=== PATIENT | male | born 1955 | race Caucasian/White ===

== ENCOUNTER 2023-03-19 19:13 | Emergency (ER) | payer OTHER, SELFPAY ==
--- NOTE | ~2023-03-19 | CT_ITS ---
EXAMINATION: CT ABDOMEN AND PELVIS WITHOUT CONTRAST CLINICAL INFORMATION: r/o R ureterolithiasis. COMPARISON: No pertinent prior studies are available for comparison. TECHNIQUE: Multidetector volumetric imaging was performed from the superior aspect of the liver through the pubic symphysis without contrast per renal stone protocol. Sagittal and coronal reformatted images were obtained on the technologist workstation. This CT examination was performed using dose optimization techniques as appropriate, variously including the following: *Automated exposure control *Adjustment of mA and/or kV according to patient size (this includes techniques or standardized protocols for targeted exams where dose is matched to indication/reason for exam; i.e. extremities or head) *Use of iterative reconstruction technique DLP: 750 mGy-cm. FINDINGS: LUNG BASES: Minimal bibasilar dependent atelectasis LIVER, GALLBLADDER, BILIARY TREE: The non-contrast liver is normal in size, shape, and attenuation. No focal hepatic lesion or biliary ductal dilatation is present. The gallbladder is unremarkable with no evidence of radiopaque gallstones, gallbladder wall thickening, or obvious pericholecystic inflammatory changes. PANCREAS: Unremarkable. SPLEEN: Unremarkable. ADRENAL GLANDS: Unremarkable. KIDNEYS AND URETERS: The kidneys are normal in size, shape, and attenuation. There is mild fullness to the right collecting system and proximal ureter extending up to a tiny 3 mm calcification in the proximal to mid right ureter at the level of L4. No intraluminal or calculi seen in the contralateral left kidney is unremarkable BLADDER: Unremarkable. GASTROINTESTINAL TRACT: A few scattered colonic diverticula are noted but no colonic wall thickening or pericolonic inflammatory changes. Normal-appearing appendix in the right lower quadrant. Visualized small bowel unremarkable ABDOMINAL WALL: No significant hernia is appreciated. LYMPHOVASCULAR STRUCTURES: Minimal vascular calcification within the aorta iliac system. No bulky adenopathy. PELVIC VISCERA: Unremarkable. OSSEUS STRUCTURES: Degenerative and chronic appearing changes to the spine CT/CT abdomen pelvis wo IV con IMPRESSION: Mild fullness to the right collecting system and proximal ureter extending up to a 3 mm calcification in the proximal to mid right ureter at the level of L4.
[2023-03-19 19:33] VITALS: BP 168/89; PULSE 70; RESP 22; TEMP 37; O2SAT 99; BMI 33.4
--- NOTE | 2023-03-19 19:33 | ED_ITS ---
HPI - Abdominal Pain General Chief Complaint: Abdominal Pain Stated Complaint: abd pain Time Seen by Provider: 03/19/23 19:49 Source: patient and family Mode of arrival: ambulatory Limitations: no limitations History of Present Illness HPI narrative: Patient comes to the emergency room complaining of right lower quadrant pain that approximately started 2-1/2 hours ago. Patient states he was very sudden, sharp, radiating from the right flank towards the testy. Patient states the actual scrotum/right testy do not hurt, no swelling, no penile discharge. Patient states he has never had this kind of pain before. Denies any injury. Related Data Previous Rx's Medication Instructions Recorded ketorolac 10 mg tablet 10 mg PO TID PRN pain #10 tabs 03/19/23 ondansetron HCl 4 mg tablet 4 mg PO Q6H PRN nausea and 03/19/23 vomiting #10 tabs oxycodone 5 mg tablet 5 mg PO BID PRN pain #4 tabs 03/19/23 prednisone 20 mg tablet 20 mg PO DAILY #3 tabs 03/19/23 tamsulosin 0.4 mg capsule 0.4 mg PO DAILY #10 caps 03/19/23 Allergies Allergy/AdvReac Type Severity Reaction Status Date / Time No Known Allergies Allergy Unverified 06/24/20 15:18 [No Known Allergies*] Review of Systems Review of Systems Constitutional : No Weight loss, No Fever, No Chills, No Night Sweats, No Fatigue, No Malaise ENT/Mouth : No Hearing loss, No Ear Pain, No Nasal Congestion, No Sinus Pain, No Hoarseness, No sore throat, No Rhinorrhea, No Swallowing Difficulty Eyes: No Eye Pain, No Swelling, No Redness, No Foreign Body, No Discharge, No Vision Changes Cardiovascular : No Chest Pain, No SOB, No Dyspnea on Exertion, No Orthopnea, No Edema, No Palpitations Respiratory : No Cough, No Sputum, No Wheezing, No Smoke Exposure, No Dyspnea Gastrointestinal : No Nausea, No Vomiting, No Diarrhea, No Constipation, complaining of right lower quadrant pain/flank pain radiating towards the back and down to the right testicle Genitourinary : Patient denies testicular pain, no scrotal swelling, No Dysuria, No Urinary Frequency, No Hematuria, No Urinary Incontinence, No Urgency, complaining of right-sided Flank Pain, No Urinary Flow Changes, No Hesitancy Musculoskeletal : No joint pain, No Myalgias, No Joint Swelling Skin : No Skin Lesions, No rash Neuro : No Weakness, No Numbness, No Paresthesias, No Loss of Consciousness, No Dizziness, No Headache Psych : No Anxiety/Panic, No Depression, No SI/HI/AH/VH, No Social Issues, Heme/Lymph: No Bruising, No Bleeding,No Lymphadenopathy Endocrine : No Polyuria, No Polydipsia, No Temperature Intolerance PMFSH Social History Social History Advance Directives: No Advance Directives Information Provided: No Physical Exam ED Vital Signs: Vital Signs - 24 hr 03/19/23 22:01 Temperature 98.1 F Pulse Rate 73 Respiratory Rate 18 Blood Pressure 134/79 Pulse Oximetry 98 Oxygen Delivery Method Room Air BMI result Body Mass Index 33.4 Const Other: Appearance: Alert. Oriented X3. Patient looks uncomfortable, unable to sit still Eyes: Pupils equal, round and reactive to light. ENT: Pharynx normal. Neck: Normal inspection. Neck supple. No lymph nodes noted. No crepitus CVS: Normal heart rate and rhythm. Pulses normal. Normal S1 and S2 Respiratory: No respiratory distress. Breath sounds normal. No Wheezing. No rales Abdomen: Soft and nontender. No rigidity. No distention. Complaining of mild right flank pain Skin: Skin warm and dry. Normal skin color. Normal skin turgor. Extremities: No lower extremity edema. No Lacerations. No Rash Neuro: Oriented X 3. No motor deficit. No sensory deficit. Moving all extremities. No slurred speech. CN 2 through 12 grossly intact Psych: calm, cooperative, normal affect Course Course Course Narrative: RME: 68yo M w/no sig PMHx c/o sudden onset right sided testicular pain radiating to R lower abdomen/back x1 hr. denies N/V, trauma, tesicular swelling, discharge Pacing around triage room, appears uncomfortable Labs, UA, CT/NG, Scrotal US ordered, +/-CT to r/o stone Full HPI, ROS and PE to be performed by primary ED provider. Medical Decision Making Medical Decision Making [facility] Narrative: -patient more comfortable, use received 2 mg of morphine on arrival. -from patient's H&P, this is likely ureterolithiasis, we will start with a CT scan, if needed we will reorder the ultrasound -patient still complaining of pain, given 30 mg of ketorolac IV -received an additional 4 mg of morphine and then 1 dose of oxycodone p.o.. Patient overall feeling much better. -I discussed the CT findings with the patient, my interpretation of CT scan: Ureterolithiasis present on the right side, patient is passing kidney stones. -urinalysis negative for UTI Lab Data MDM Lab Attestation statement: I reviewed the patient's lab results. 03/19/23 19:40 03/19/23 19:40 Labs: Lab Results 03/19/23 03/19/23 03/19/23 Range/Units 19:40 19:40 21:22 WBC 6.7 (4.8-10.8) X10*3/uL RBC 5.11 (4.60-5.80) X10*6/uL Hgb 15.1 (14.0-18.0) g/dl Hct 44.2 (42.0-52.0) % MCV 86.5 (80.0-98.0) fL MCH 29.5 (27.0-33.0) pg MCHC 34.2 (31.0-36.0) g/dl RDW 12.7 (11.0-16.0) % Plt Count 240 (160-400) X10*3/uL MPV 9.2 L (9.4-12.4) fL Immature Gran % (Auto) 0.1 (0.0-0.4) % Neut % (Auto) 49.4 (45-73) % Lymph % (Auto) 34.5 (20-40) % [place] % (Auto) 13.6 H (2-11) % Eos % (Auto) 1.8 (0-4) % Baso % (Auto) 0.6 (0-2) % Lymph # (Auto) 2.3 (1.2-4.9) X10*3/uL [place] # (Auto) 0.9 (0.1-1.2) X10*3/uL Eos # (Auto) 0.1 (0.0-0.4) X10*3/uL Baso # (Auto) 0.0 (0.0-0.2) X10*3/uL Abs Immat Gran (auto) 0.01 (0.00-0.03) X10*3/uL Absolute Neuts (auto) 3.3 (2.0-8.3) x10*3/uL Absolute Nucleated RBC 0.000 (0.0-0.012) X10*3/uL Nucleated RBC % (auto) 0.0 (0.0-0.2) /100WBC Sodium 139 (135-145) mmol/L Potassium 4.3 (3.3-5.1) mmol/L Chloride 104 (96-108) mmol/L Carbon Dioxide 22 (22-29) mmol/L Anion Gap 17 (12-20) BUN 20 H (9-16) mg/dL Creatinine 1.03 (0.5-1.4) mg/dL Estim Creat Clear Calc 84.6 Estimated GFR > 60 Random Glucose 225 H (60-115) mg/dL Calcium 10.0 (8.4-10.2) mg/dL Total Bilirubin 0.8 (0.0-1.0) mg/dL Direct Bilirubin 0.2 (0.0-0.5) mg/dL AST 31 (5-37) U/L ALT 30 (0-40) U/L Alkaline Phosphatase 69 (39-117) U/L Total Protein 7.2 (6.5-8.0) g/dL Albumin 4.4 (3.5-5.0) g/dL Lipase 37 (8-78) U/L Urine Color Yellow Urine Appearance Clear Urine pH 7.5 (5.0-9.0) Ur Specific [place] 1.010 (1.005-1.025) Urine Protein Negative (Neg-Trace) mg/dL Urine Glucose (UA) Negative (Negative) mg/dL Urine Ketones 15 (Negative) mg/dL Urine Blood Large (3+) H (Negative) Urine Nitrite Negative (Negative) Ur Leukocyte Esterase Negative (Negative) Urine RBC >20 H (0-2) /HPF Urine WBC 0-5 (0-5) /HPF Ur Squamous Epith Cells 0-2 (0-2) /HPF Urine Bacteria None Seen (None Seen) Hyaline Casts 0-2 (0-2) /LPF Chlam trachomat DNA PCR (Not Detect.) N.gonorrhoeae DNA (PCR) (Not Detect.) 03/19/23 Range/Units 21:22 WBC (4.8-10.8) X10*3/uL RBC (4.60-5.80) X10*6/uL Hgb (14.0-18.0) g/dl Hct (42.0-52.0) % MCV (80.0-98.0) fL MCH (27.0-33.0) pg MCHC (31.0-36.0) g/dl RDW (11.0-16.0) % Plt Count (160-400) X10*3/uL MPV (9.4-12.4) fL Immature Gran % (Auto) (0.0-0.4) % Neut % (Auto) (45-73) % Lymph % (Auto) (20-40) % [place] % (Auto) (2-11) % Eos % (Auto) (0-4) % Baso % (Auto) (0-2) % Lymph # (Auto) (1.2-4.9) X10*3/uL [place] # (Auto) (0.1-1.2) X10*3/uL Eos # (Auto) (0.0-0.4) X10*3/uL Baso # (Auto) (0.0-0.2) X10*3/uL Abs Immat Gran (auto) (0.00-0.03) X10*3/uL Absolute Neuts (auto) (2.0-8.3) x10*3/uL Absolute Nucleated RBC (0.0-0.012) X10*3/uL Nucleated RBC % (auto) (0.0-0.2) /100WBC Sodium (135-145) mmol/L Potassium (3.3-5.1) mmol/L Chloride (96-108) mmol/L Carbon Dioxide (22-29) mmol/L Anion Gap (12-20) BUN (9-16) mg/dL Creatinine (0.5-1.4) mg/dL Estim Creat Clear Calc Estimated GFR Random Glucose (60-115) mg/dL Calcium (8.4-10.2) mg/dL Total Bilirubin (0.0-1.0) mg/dL Direct Bilirubin (0.0-0.5) mg/dL AST (5-37) U/L ALT (0-40) U/L Alkaline Phosphatase (39-117) U/L Total Protein (6.5-8.0) g/dL Albumin (3.5-5.0) g/dL Lipase (8-78) U/L Urine Color Urine Appearance Urine pH (5.0-9.0) Ur Specific [employer] [place] (1.005-1.025) Urine Protein (Neg-Trace) mg/dL Urine Glucose (UA) (Negative) mg/dL Urine Ketones (Negative) mg/dL Urine Blood (Negative) Urine Nitrite (Negative) Ur Leukocyte Esterase (Negative) Urine RBC (0-2) /HPF Urine WBC (0-5) /HPF Ur Squamous Epith Cells (0-2) /HPF Urine Bacteria (None Seen) Hyaline Casts (0-2) /LPF Chlam trachomat DNA PCR NOT DETECTED (Not Detect.) N.gonorrhoeae DNA (PCR) NOT DETECTED (Not Detect.) Radiology Impression Discussion of test interpretation with radiology: I have reviewed the radiolo gist's reading. Radiologist Impression: INDINGS: LUNG BASES: Minimal bibasilar dependent atelectasis LIVER, GALLBLADDER, BILIARY TREE: The non-contrast liver is normal in size, shape, and attenuation. No focal hepatic lesion or biliary ductal dilatation is present.? The gallbladder is unremarkable with no evidence of radiopaque gallstones, gallbladder wall thickening, or obvious pericholecystic inflammatory changes. PANCREAS: Unremarkable. SPLEEN: Unremarkable. ADRENAL GLANDS: Unremarkable. KIDNEYS AND URETERS: The kidneys are normal in size, shape, and attenuation. There is mild fullness to the right collecting system and proximal ureter extending up to a tiny 3 mm calcification in the proximal to mid right ureter at the level of L4. No intraluminal or calculi seen in the contralateral left kidney is unremarkable BLADDER: Unremarkable. GASTROINTESTINAL TRACT: A few scattered colonic diverticula are noted but no colonic wall thickening or pericolonic inflammatory changes. Normal-appearing appendix in the right lower quadrant. Visualized small bowel unremarkable ABDOMINAL WALL: No significant hernia is appreciated. LYMPHOVASCULAR STRUCTURES: Minimal vascular calcification within the aorta iliac system. No bulky adenopathy. PELVIC VISCERA: Unremarkable. OSSEUS STRUCTURES: Degenerative and chronic appearing changes to the spine CT/CT abdomen pelvis wo IV con IMPRESSION: Mild fullness to the right collecting system and proximal ureter extending up to a 3 mm calcification in the proximal to mid right ureter at the level of L4. ? Medications Administered Discontinued Medications Generic Name Dose Route Start Last Admin Trade Name Freq PRN Reason Stop Dose Admin Sodium Chloride 1,000 mls @ 999 mls/hr 03/19/23 19:45 03/19/23 22:17 Ns IV 03/19/23 20:45 Infused .Q1H1M SUMEET Infusion Ketorolac Tromethamine 30 mg 03/19/23 20:02 03/19/23 20:09 Ketorolac Tromethamine 30 Mg/Ml Vial IVPUSH 03/19/23 20:03 30 mg ONCE ONE Administration Morphine Sulfate 2 mg 03/19/23 19:40 03/19/23 19:51 Morphine Sulfate 2 Mg/Ml Cartridge IVPUSH 03/19/23 19:41 2 mg ONCE ONE Administration Protocol Morphine Sulfate 4 mg 03/19/23 20:51 03/19/23 21:03 Morphine Sulfate 4 Mg/Ml Cartridge IVPUSH 03/19/23 20:52 4 mg ONCE ONE Administration Protocol Ondansetron HCl 4 mg 03/19/23 19:40 03/19/23 19:51 Ondansetron Hcl 4 Mg/2 Ml Vial IVPUSH 03/19/23 19:41 4 mg ONCE ONE Administration Oxycodone HCl 5 mg 03/19/23 21:17 03/19/23 21:44 Oxycodone Hcl Immed Release 5 Mg Tablet PO 03/19/23 21:18 5 mg ONCE ONE Administration Discharge Plan Discharge Clinical Impression: Ureterolithiasis Patient Disposition: Home, Self-Care Instructions: Kidney Stones (ED) Additional Instructions: Strain the urine, try to catch the stones and take them with you to your urology appointment. Please follow-up with your primary care physician tomorrow. If you have any worsening or new symptoms, please return to the emergency room or call 911 Prescriptions: New ketorolac 10 mg tablet 10 mg PO TID PRN (Reason: pain) Qty: 10 0RF Rx Instructions: Your take this medications with ibuprofen, NSAIDs. oxycodone 5 mg tablet 5 mg PO BID PRN (Reason: pain) Qty: 4 0RF Rx Instructions: Partial Fill upon patient request. Use only if ketorolac does not work/help with the pain tamsulosin 0.4 mg capsule 0.4 mg PO DAILY Qty: 10 0RF prednisone 20 mg tablet 20 mg PO DAILY Qty: 3 0RF ondansetron HCl 4 mg tablet 4 mg PO Q6H PRN (Reason: nausea and vomiting) Qty: 10 0RF Referrals: Kraig Escalante MD [Physician] - 03/26/23 Interventions: ED Discharge Assessment Last Done: 03/19/23 22:20 Discharge Date/Time: 03/19/23 22:20
[2023-03-19 19:46] LABS: MANUAL DIFF FLAG NO
[2023-03-19 19:49] LABS: Basophils Percent Auto 0.6 % (0-2); Eosinophils Absolute Auto 0.1 X10*3/uL (0.0-0.4); Eosinophils Percent Auto 1.8 % (0-4); Hematocrit 44.2 % (42.0-52.0); Hemoglobin 15.1 g/dl (14.0-18.0); Imm Gran Abs Auto 0.01 X10*3/uL (0.00-0.03); Imm Gran Pct Auto 0.1 % (0.0-0.4); Lymphocytes Absolute Auto 2.3 X10*3/uL (1.2-4.9); Lymphocytes Percent Auto 34.5 % (20-40); Mean Corpuscular HGB Conc 34.2 g/dl (31.0-36.0); Mean Corpuscular Hemoglobin 29.5 pg (27.0-33.0); Mean Corpuscular Volume 86.5 fL (80.0-98.0); Mean Platelet Volume 9.2 fL (9.4-12.4); Monocytes Absolute Auto 0.9 X10*3/uL (0.1-1.2); Monocytes Percent Auto 13.6 % (2-11); Neutrophils Absolute Auto 3.3 x10*3/uL (2.0-8.3); Neutrophils Percent Auto 49.4 % (45-73); Platelet Count 240 X10*3/uL (160-400); Red Blood Count 5.11 X10*6/uL (4.60-5.80); Red Cell Distribution Width 12.7 % (11.0-16.0); White Blood Count 6.7 X10*3/uL (4.8-10.8)
[2023-03-19] MEDS: ondansetron HCL 4 MG/2 ML VIAL IVPUSH (19:51)
[2023-03-19] MEDS: Morphine Sulfate 2 MG/ML CARTRIDGE IVPUSH (19:51)
[2023-03-19] MEDS: 0.9 % Sodium Chloride 1,000 ML 999 ML IV (19:51)
--- NOTE | 2023-03-19 19:56 | PC.NURSE ---
pt medicated per DEC for 10/10 abd pain.
--- NOTE | 2023-03-19 19:59 | PC.NURSE ---
20g iv placed in left lateral ac- pt to have imaging
[2023-03-19 20:01] VITALS: BP 148/77; PULSE 78; RESP 20; TEMP 36.6; O2SAT 100
[2023-03-19 20:08] LABS: Alanine Aminotransferase 30 U/L (0-40); Albumin Level 4.4 g/dL (3.5-5.0); Alkaline Phosphatase 69 U/L (39-117); Anion Gap 17 (12-20); Aspartate Amino Transferase 31 U/L (5-37); Bilirubin Direct 0.2 mg/dL (0.0-0.5); Bilirubin Total 0.8 mg/dL (0.0-1.0); Blood Urea Nitrogen 20 mg/dL (9-16); Carbon Dioxide 22 mmol/L (22-29); Chloride 104 mmol/L (96-108); Creatinine Clr Calc Pharmacy 84.6; Estimated Glomerular Filt Rate > 60; Glucose Random 225 mg/dL (60-115); Lipase 37 U/L (8-78); Potassium 4.3 mmol/L (3.3-5.1); Sodium 139 mmol/L (135-145); Total Protein 7.2 g/dL (6.5-8.0)
[2023-03-19] MEDS: Ketorolac Tromethamine 30 MG/ML VIAL IVPUSH (20:09)
--- NOTE | 2023-03-19 20:30 | PC.NURSE ---
pt returned from CT scan, nurse noted iv site in left AC was swollen and cool. IV removed, new IV started in right AC. 1l NS running per order
--- NOTE | 2023-03-19 20:44 | PC.NURSE ---
provider made aware of left IV infiltration- per provider, applied warm compress to site. call tyler within reach [facility]
[2023-03-19] MEDS: Morphine Sulfate 4 MG/ML CARTRIDGE IVPUSH (21:03)
[2023-03-19 21:31] LABS: Appearance Urine Clear; Color Urine Yellow; Glucose Urine UA Negative (Negative); Leukocyte Esterase Urine Negative (Negative); Nitrite Urine Negative (Negative); PH 7.5 (5.0-9.0); UMIC TRIGGER UACC YES; Urine Blood Large (3+) (Negative); Urine Ketones 15 mg/dL (Negative); Urine Protein Negative (Neg-Trace)
[2023-03-19 21:36] LABS: Bacteria Urine None Seen (None Seen); Hyaline Casts Urine 0-2 /LPF (0-2); RBC Urine >20 /HPF (0-2); Squamous Epithelial Cell Urine 0-2 /HPF (0-2); WBC Urine 0-5 /HPF (0-5)
[2023-03-19] MEDS: oxyCODONE HCl Immed Release 5 MG TABLET PO (21:44)
[2023-03-19 22:01] VITALS: BP 134/79; PULSE 73; RESP 18; TEMP 36.7; O2SAT 98
[2023-03-20 02:46] LABS: CT PCR NOT DETECTED (Not Detect.); NG PCR NOT DETECTED (Not Detect.)
== END 2023-03-19 22:20 | disposition home or self-care (01) ==
PROVIDERS: Physician Assistant; Emergency Provider Emergency Medicine
DX: N20.1 Calculus of ureter (principal); R10.31 Right lower quadrant pain; N50.811 Right testicular pain
CPT/HCPCS: 0353U; 36415; 74176; 80048; 80076; 81001; 83690; 85025; 96361; 96374; 96375; 96376; 99283; 99284; J1885; J2270; J2405

== ENCOUNTER 2023-04-16 08:26 | Outpatient (REF) | payer OTHER, SELFPAY ==
[2023-04-24 13:48] LABS: Stone Source KIDNEY STONE
== END 2023-04-16 08:27 | disposition home or self-care (01) ==
LOC: HO.LNP 08:26
PROVIDERS: Visit Provider Nurse Practitioner Family
DX: N20.0 Calculus of kidney (principal); N20.1 Calculus of ureter
CPT/HCPCS: 82365; 88300

== ENCOUNTER 2023-04-16 08:26 | Outpatient (AMB) | payer OTHER, SELFPAY ==
--- NOTE | 2023-04-16 08:34 | MHC.OFFVIS ---
Intake Intake Visit Reasons: ER follow up Intake Note: Patient is present for initial visit ER Follow up kidney stones ER Visit: 03/19/23 Urology Medications: none Blood Thinner: none Information Systems Coordinator Required: No Accompanied by: Spouse Allergies No Known Allergies [No Known Allergies*] Allergy (Unverified 04/16/23 10:35) HPI HPI Comments History of Present Illness Details Benja is a very pleasant 68 year old male patient who is accompanied by his at todays visit. He presents to the office today as a new patient for nephrolithaisis. Patient reports seeking emergency room care here at [facility] approximately one month ago for right sided flank pain that radiated to his lower abdominal area and testicles. He reports days after his ER visit he urinated the kidney stone and has brought it in with him today. Recent imaging results reviewed with the patient and his today. The kidneys are normal in size, shape, and attenuation. There is mild fullness to the right collecting system and proximal ureter extending up to a tiny 3 mm calcification in the proximal to mid right ureter at the level of L4. No intramural or calculi seen in the contralateral left kidney is unremarkable. The bladder is unremarkable. When asked he denies any PMH of renal calculi. He reports incident happened 2-3 days after his daughter Kimberly got and believes the stress of the event and not drinking a lot of water as he typically does could have caused this. He also reports he is unsure if it is related to him recently started Collagen supplements as he has recently had a left sided meniscus repair. He discusses being a vegetarian for many years now. He otherwise denies any urinary issues or concerns at this time. When asked he denies urinary urgency, urinary frequency, incontinence, nocturia, hematuria, dysuria, foul smelling urine, changes to urinary stream, flank pain, fever, and or chills. He is happy with his current voiding parameters. When asked patient denies following up with annual physical and or visits with a PCP. He denies having a PCP. Discussed at length importance of doing so. Offered MARIO ALBERTO and or PSA to be ordered, drawn, and completed however patient declines at this time. Discussed further nephrolithaisis workup with labs, imaging, and 24 hour urine collection for further assessment and evaluation however patient declines at this time. He discusses his recent bill for his MRI of the left knee he had done and experienced having a high deducible/bill. He does however give permission to have stone sent for stone analysis. In office urinalysis results reviewed with the patient today. He otherwise offers no issues or concerns at this time. Review of Systems Const All systems reviewed & are unremarkable except as noted in HPI and below Reports as per HPI Eyes Reports no additional complaints ENT Reports no additional complaints Card Reports no additional complaints Resp Reports no additional complaints GI Reports no additional complaints Reports as per HPI Neuro Reports no additional complaints Psych Reports no additional complaints Endo Reports no additional complaints Medardo/Lymph Reports no additional complaints Aller/Immun Reports no additional complaints Physical Exam Const General: cooperative, healthy appearing, comfortable, no acute distress, well developed, alert and awake Orientation/consciousness: patient oriented x3 Limitations: no limitations HEENT Head: Yes normal to inspection, Yes normocephalic and Yes atraumatic Ears: hearing grossly normal bilaterally Eyes General: appearance normal, both eyes and all related structures Neck Neck: Yes normal visual inspection and Yes trachea midline Chest Chest palpation & inspection: normal inspection of the chest Resp Effort & Inspection: normal respiratory effort and able to speak in complete sentences Cardio Rate: regular rate GI Inspection: Yes normal to inspection General: Yes no CVA tenderness Back/Spine/Pelvis Back: no CVA tenderness Skin General skin exam: no rashes or lesions noted Neuro General: patient oriented x3 Extrem General: Yes normal to inspection Psych Appearance: grossly normal and well kempt Mental Status: mental status grossly normal Speech and movement: Normal speech and movement present and Clear speech present Affect: normal affect Attitude: cooperative Thought process: Normal thought process present Thought content: Normal thought content present Insight: Fair insight present (Psych) Judgement: Fair judgement present (Psych) Results AMB Urinalysis, Automated UA Leukoctes 0 Nestor/uL Last Edit by [email or web address] on 04/16/23 08:59 UA Nitrite Negative Last Edit by [email or web address] on 04/16/23 08:59 UA Urobilinogen 0.2 mg/dL Last Edit by [email or web address] on 04/16/23 08:59 UA Protein 0 mg/dL Last Edit by [email or web address] on 04/16/23 08:59 UA pH 6.0 Last Edit by [email or web address] on 04/16/23 08:59 UA Blood 0 Eitan/uL Last Edit by [email or web address] on 04/16/23 08:59 UA Specific [place] 1.020 Last Edit by Gabe López on 04/16/23 08:59 UA Ketone Negative Last Edit by Gabe López on 04/16/23 08:59 UA Bilirubin 0 mg/dL Last Edit by Gabe López on 04/16/23 08:59 UA Glucose 0 mg/dL Last Edit by Gabe López on 04/16/23 08:59 Results Reviewed Results Reviewed: Laboratory Last Values Urine pH (Auto) 6.0 04/16/23 08:41 Specific [place] (Auto) 1.020 04/16/23 08:41 Urine Protein (Auto) 0 mg/dL 04/16/23 08:41 Glucose (UA)(Auto) 0 mg/dL 04/16/23 08:41 Urine Ketones (Auto) Negative 04/16/23 08:41 Urine Blood (Auto) 0 Eitan/uL 04/16/23 08:41 Urine Nitrite (Auto) Negative 04/16/23 08:41 Urine Bilirubin (Auto) 0 mg/dL 04/16/23 08:41 Urine Urobilinogen (Auto) 0.2 mg/dL 04/16/23 08:41 Leukocyte Esterase (Auto) 0 Nestor/uL 04/16/23 08:41 Date of Service: 03/19/23 EXAMINATION: CT ABDOMEN AND PELVIS WITHOUT CONTRAST FINDINGS: LUNG BASES: Minimal bibasilar dependent atelectasis LIVER, GALLBLADDER, BILIARY TREE: The non-contrast liver is normal in size, shape, and attenuation. No focal hepatic lesion or biliary ductal dilatation is present.? The gallbladder is unremarkable with no evidence of radiopaque gallstones, gallbladder wall thickening, or obvious pericholecystic inflammatory changes. PANCREAS: Unremarkable. SPLEEN: Unremarkable. ADRENAL GLANDS: Unremarkable. KIDNEYS AND URETERS: The kidneys are normal in size, shape, and attenuation. There is mild fullness to the right collecting system and proximal ureter extending up to a tiny 3 mm calcification in the proximal to mid right ureter at the level of L4. No intraluminal or calculi seen in the contralateral left kidney is unremarkable BLADDER: Unremarkable. GASTROINTESTINAL TRACT: A few scattered colonic diverticula are noted but no colonic wall thickening or pericolonic inflammatory changes. Normal-appearing appendix in the right lower quadrant. Visualized small bowel unremarkable ABDOMINAL WALL: No significant hernia is appreciated. LYMPHOVASCULAR STRUCTURES: Minimal vascular calcification within the aorta iliac system. No bulky adenopathy. PELVIC VISCERA: Unremarkable. OSSEUS STRUCTURES: Degenerative and chronic appearing changes to the spine IMPRESSION: Mild fullness to the right collecting system and proximal ureter extending up to a 3 mm calcification in the proximal to mid right ureter at the level of L4. Assessment & Plan Assessment & Plan (1) Renal calculus, right: Code(s): N20.0 - Calculus of kidney Plan In office urinalysis results reviewed with the patient today; as noted above Will send stone for stone analysis Recent CT imaging results reviewed with the patient and his today; as noted above. Discussed at length potential causues for nephrolithaisis and further workup however patient declines at this time Discussed and stressed the importance of obtaining PCP for prevenative care and for overall health and well being Discussed, educated, and stressed the importance of drinking plenty of water daily Discussed adding one ounce of lemon juice to water daily. Offered MARIO ALBERTO and PSA screening however patient declines Renal ultrasound in one year Follow up in one year with imaging to be completed prior; or sooner with any issues, concerns, and or questions. Orders: Orders US renal BI 364 Days N20.0 - Calculus of kidney AMB Urinalysis Automated Today Z13.9 - Encounter for screening, unspecified Surgical Today N20.1 - Calculus of ureter Patient Instructions: The patient had an opportunity to ask questions regarding the treatment plan. All questions were answered. Physical exam, labs, and imaging were discussed and reviewed in detail. As well as risks, benefits, and discussion of treatment choices. No major barriers to understanding were identified. The patient expressed understanding and agreement with the above treatment plan. The patient was made aware they should contact our office by phone for worsening of their current condition, the appearance of new symptoms, or with any questions or concerns. Compliance is encouraged with any medications and follow up testing that is ordered. It is a privilege to be allowed the opportunity to participate in? your urological care.? Again, if you have any questions or concerns If you have any questions or concerns please do not hesitate to contact me. The office is [phone]. This note is constructed using voice recognition software. While every effort has been made to ensure accuracy mortgage loan originator errors may have been included. Yours sincerely, Micheline Gramajo AUTOMOTIVE PRODUCT SPECIALIST- Coding Level of Care Code New Pt Level 3 (97404) Diagnoses Renal calculus, right N20.0
== END 2023-04-16 09:09 | disposition home or self-care (01) ==
PROVIDERS: Visit Provider Nurse Practitioner Family
DX: N20.0 Calculus of kidney (principal)
CPT/HCPCS: 99203